=== PATIENT | male | born 1980 | race Caucasian/White ===

== ENCOUNTER 2025-01-25 13:36 | Observation (INO) | payer BC, OTHER ==
[~2025-01-25] VITALS: Ht 180.3 cm; Wt 95.6 kg
[2025-01-25] MEDS ORDERED: ISOVUE-370 76% 100 ML VIAL As Ordered ONE (14:03)
[2025-01-25 14:19] LABS: BASO # 0.0 10^3/uL (0.0-0.2); BASO % 0.1 % (0.0-1.0); EOS # 0.0 10^3/uL (0.0-0.5); EOS % 0.4 % (0.0-3.0); LYMPH # 0.7 10^3/uL (1.5-5.0); LYMPH % 8.1 % (24.0-44.0); MONO # 0.5 10^3/uL (0.0-0.8); MONO % 5.6 % (2.0-8.0); NEUTROPHILS # 7.7 10^3/uL (1.5-8.5); NEUTROPHILS % 85.0 % (36.0-66.0); PLATELET COUNT, AUTOMATED 209 10^3/uL (150-450)
[2025-01-25] MEDS: levETIRAcetam INJection 1,000 MG in IV 1 EA IV ONE (14:21)
[2025-01-25 14:23] VITALS: BP 189/113; TEMP 97.4; O2SAT 93
[2025-01-25 14:46] LABS: ETHYL ALCOHOL (ETHANOL) 0.004 % (0.000-0.010)
[2025-01-25 14:48] LABS: ALT/SGPT 36.0 U/L (7.0-40); AST/SGOT 32.0 U/L (<34); CALCIUM LEVEL 9.1 MG/DL (8.5-10.1); CARBON DIOXIDE LEVEL 18.0 MMOL/L (20-31); CHLORIDE LEVEL 102.0 MMOL/L (98-107); CK-MB VALUE MASS 2.3 NG/ML (<3.6); CREATININE FOR GFR 1.27 MG/DL (0.70-1.30); GLOMERULAR FILTRATION RATE 71.4 (>60); MAGNESIUM LEVEL 2.4 MG/DL (1.8-2.4); POTASSIUM SERUM 4.5 MMOL/L (3.5-5.1); SODIUM LEVEL 141.0 MMOL/L (136-145)
[2025-01-25 14:50] LABS: FREE T4 1.15 NG/DL (0.89-1.76)
[2025-01-25 14:51] LABS: CPK CREATINE PHOSPHOKINASE 162.0 U/L (46-171); MB/CK RELATIVE INDEX 1.41 (< OR =4)
[2025-01-25 14:52] LABS: INR 0.95
[2025-01-25 15:14] VITALS: BP 190/118; TEMP 98.2
[2025-01-25] MEDS: hydrALAZINE 20 MG/ML 1 ML VIAL IV STA (16:13)
[2025-01-25] MEDS ORDERED: JARD1TAB PO (16:38)
[2025-01-25] MEDS ORDERED: CLONI1TA PO (16:40)
[2025-01-25] MEDS ORDERED: ELIQ5TAB PO (16:41)
[2025-01-25] MEDS ORDERED: CARV12.5 PO (16:42)
[2025-01-25] MEDS ORDERED: FURO40TA2 PO (16:42)
[2025-01-25] MEDS ORDERED: SEMA2.4P SQ (16:44)
[2025-01-25] MEDS ORDERED: LEVE750T5 PO (17:11)
[2025-01-25] MEDS ORDERED: ATOR40TA75 PO (17:13)
[2025-01-25] MEDS ORDERED: LOSA100T46 PO (17:13)
[2025-01-25] MEDS ORDERED: HOME MED LIST COMPLETE! XX SCH ×2 (17:15)
[2025-01-25] MEDS ORDERED: PILL CUTTER 1 EACH XX ONE (20:03)
[2025-01-25] MEDS: APIXABAN 5 MG TAB PO SCH (20:06)
[2025-01-25] MEDS: ATORVASTATIN 20 MG TAB PO SCH (20:08)
[2025-01-25 20:10] LABS: ESTIMATED AVERAGE GLUCOSE 100.0 MG/DL (60-110)
[2025-01-25] MEDS: LOSARTAN 50 MG TABLET PO SCH (20:10)
[2025-01-25 20:25] LABS: CALCIUM LEVEL 8.7 MG/DL (8.5-10.1); CARBON DIOXIDE LEVEL 23.0 MMOL/L (20-31); CHLORIDE LEVEL 104.0 MMOL/L (98-107); CREATININE FOR GFR 1.06 MG/DL (0.70-1.30); GLOMERULAR FILTRATION RATE 88.8 (>60); POTASSIUM SERUM 3.7 MMOL/L (3.5-5.1); SODIUM LEVEL 141.0 MMOL/L (136-145)
[2025-01-25 20:27] LABS: ALT/SGPT 32.0 U/L (7.0-40); AST/SGOT 30.0 U/L (<34); CHOLESTEROL LEVEL 170.0 MG/DL (<200); CHOLESTEROL RISK RATIO 2.97 (<5); LDL CHOLESTEROL 99.5 MG/DL (<100); NON-HDL-C 112.9 MG/DL; TRIGLYCERIDES LEVEL 67.0 MG/DL (<150)
[2025-01-26 08:40] VITALS: BP 111/75
[2025-01-26] MEDS ORDERED: FUROSEMIDE 40 MG TAB PO SCH (09:00)
[2025-01-26] MEDS ORDERED: KEPP250T5 PO (10:37)
[2025-01-26 11:53] VITALS: BP 130/92; TEMP 100.1; O2SAT 96
== END 2025-01-26 12:30 | disposition home or self-care (01) ==
LOC: M ED 13:36 → M ED INP 13:37
PROVIDERS: ADMIT Student in an Organized Health Care Education/Training Program; ATTEND Student in an Organized Health Care Education/Training Program
DX: R56.9 Unspecified convulsions (principal); I11.0 Hypertensive heart disease with heart failure; I50.9 Heart failure, unspecified; Z87.891 Personal history of nicotine dependence; I16.0 Hypertensive urgency; E87.20 Acidosis, unspecified; Z86.73 Personal history of transient ischemic attack (TIA), and cerebral infarction without residual deficits; Z68.29 Body mass index [BMI] 29.0-29.9, adult; Z79.85 Long-term (current) use of injectable non-insulin antidiabetic drugs; Z79.01 Long term (current) use of anticoagulants; Z79.899 Other long term (current) drug therapy; Z86.011 Personal history of benign neoplasm of the brain
CPT/HCPCS: 36415; 70450; 70496; 70498; 70551; 71045; 80047; 80048; 80061; 80076; 80177; 82077; 82550; 82553; 83036; 83735; 84439; 84443; 84484; 85025; 85610; 85730; 86850; 86900; 86901; 93005; 93041; 94760; 96374; 96375; 99285; J0360; J1953; Q9967